=== PATIENT | male | born 1995 | race African-American/Black ===

== ENCOUNTER 2020-08-12 15:41 | Inpatient (IN) | payer SELFPAY ==
[~2020-08-12] VITALS: Ht 180.3 cm; Wt 62.1 kg
[2020-08-12 18:50] LABS: BASOPHILS % 0.7 % (0.0-2.0); EOSINOPHILS % 2.7 % (0.0-5.0); HEMATOCRIT. 37.1 % (42.0-52.0); HEMOGLOBIN. 12.7 g/dL (14.0-18.0); LYMPHOCYTES % 12.7 % (20.0-50.0); MEAN CORPUSCULAR HEMOGLOBIN 30.5 pg (28.0-32.0); MEAN CORPUSCULAR VOLUME 89.2 fL (80.0-94.0); MEAN PLATELET VOLUME 7.1 fl (7.4-10.4); MONOCYTES % 7.3 % (2.0-8.0); NEUTROPHILS % 76.6 % (40.0-76.0); PLATELET 431 x1000/uL (130-400); RED BLOOD CELL COUNT 4.16 mill/uL (4.7-6.1); RED CELL DISTRIBUTION WIDTH 15.1 % (11.6-14.6)
[2020-08-12 18:56] LABS: CHLORIDE 102 mEq/L (98-107)
[2020-08-13 00:03] LABS: CLARITY URINE TURBID (CLEAR); COLOR URINE ORANGE (YELLOW); KETONES URINE NEGATIVE (NEGATIVE); LEUKOCYTE ESTERASE URINE 3+ (NEGATIVE); NITRITE URINE POSITIVE (NEGATIVE); OCCULT BLOOD URINE 3+ (NEGATIVE); PH URINE 6.5 (4.5-8.0); PROTEIN URINE 2+ (NEGATIVE); SPECIFIC GRAVITY URINE 1.012 (1.005-1.030); UROBILINOGEN URINE 0.2 E.U./dL (0.2-1.0)
[2020-08-13 00:14] LABS: *AMPHETAMINES SCREEN URINE NEGATIVE (NEGATIVE); *BARBITURATES SCREEN URINE NEGATIVE (NEGATIVE); *BENZODIAZEPINES SCREEN URINE NEGATIVE (NEGATIVE); *COCAINE SCREEN URINE NEGATIVE (NEGATIVE); METHADONE URINE SCREEN NEGATIVE (NEGATIVE); OPIATES URINE SCREEN PRESUMTIVE POSITIVE (NEGATIVE)
[2020-08-13 00:15] LABS: CANNABINOID URINE SCREEN PRESUMTIVE POSITIVE (NEGATIVE); PHENCYCLIDINE URINE SCREEN NEGATIVE (NEGATIVE)
[2020-08-13] MEDS ORDERED: CEFTRIAXONE 1 G PREMIX 50 ML IV ONE (00:30)
[2020-08-13] MEDS ORDERED: HYDROCODONE/ACETAMINOPHEN 5/325MG TABLET PO PRN (05:45)
[2020-08-13] MEDS ORDERED: DOCUSATE SODIUM 100MG CAPSULE PO PRN (05:45)
[2020-08-13] MEDS ORDERED: ONDANSETRON HCL 4MG/2ML INJ IV PRN (05:45)
[2020-08-13] MEDS ORDERED: MAGNESIUM/ALUMINUM HYDROXIDE/SIMETHICONE 30ML UDC PO PRN (05:45)
[2020-08-13] MEDS ORDERED: ACETAMINOPHEN 325MG TABLET PO PRN (05:45)
[2020-08-13] MEDS ORDERED: SODIUM CHLORIDE 0.45% 1,000 ML IV SCH (05:45)
[2020-08-13] MEDS ORDERED: CLONIDINE 0.1MG TABLET PO PRN (05:45)
[2020-08-13] MEDS ORDERED: LEVOFLOXACIN 500MG PREMIX 100 ML IV SCH (06:00)
[2020-08-13] MEDS ORDERED: ENOXAPARIN 40MG/0.4ML SYR SUBCUT SCH (09:00)
[2020-08-13 10:00] VITALS: BP 146/89
[2020-08-13 10:26] VITALS: BP 146/89
[2020-08-13 12:00] VITALS: BP 130/97
[2020-08-13 12:01] VITALS: BP 130/97
[2020-08-13 12:53] VITALS: BP 130/97
== END 2020-08-13 14:51 | disposition home or self-care (01) | DRG 463 ==
LOC: ER 15:41 → 8WST 08-13 00:34 → ENRESERV 08-13 07:37
PROVIDERS: ADMIT Hospitalist; ATTEND Hospitalist
DX: N39.0 Urinary tract infection, site not specified (principal); G82.20 Paraplegia, unspecified; F17.210 Nicotine dependence, cigarettes, uncomplicated; R55 Syncope and collapse; G40.909 Epilepsy, unspecified, not intractable, without status epilepticus; Z99.3 Dependence on wheelchair
CPT/HCPCS: 36415; 71045; 80053; 80305; 81003; 83880; 84484; 85025; 87077; 87186; 93005; 93306; 93970; 99285; J0696; A4315

== ENCOUNTER 2020-08-20 08:08 | Emergency (ER) | payer SELFPAY ==
[~2020-08-20] VITALS: Ht 175.3 cm; Wt 64.0 kg
[2020-08-20] MEDS ORDERED: DIAZEPAM 5 MG/ML 2ML CPJ IM ONE (09:15)
[2020-08-20] MEDS ORDERED: KETOROLAC 60MG/2ML VIAL IM ONE (09:15)
[2020-08-20] MEDS ORDERED: FENTANYL CITRATE/PF 50MCG/ML 2ML VIAL IV ONE (10:45)
[2020-08-20] MEDS ORDERED: PROPOFOL 200MG/20ML VIAL IV ONE (14:00)
[2020-08-20] MEDS ORDERED: ONDANSETRON HCL 4MG/2ML INJ IV ONE (14:00)
[2020-08-20 16:11] VITALS: BP 150/100
== END 2020-08-20 17:22 | disposition home or self-care (01) ==
LOC: ER 08:08
DX: S03.03XA Dislocation of jaw, bilateral, initial encounter (principal); F17.210 Nicotine dependence, cigarettes, uncomplicated; X58.XXXA Exposure to other specified factors, initial encounter; Y93.9 Activity, unspecified; Y92.9 Unspecified place or not applicable; Z71.6 Tobacco abuse counseling; Z93.0 Tracheostomy status; Z99.3 Dependence on wheelchair; Z74.01 Bed confinement status
CPT/HCPCS: 21480; 70100; 70486; 93005; 96372; 96374; 99152; 99285; J1885; J2405; J2704; J3010; J3360

== ENCOUNTER 2020-08-21 19:17 | Emergency (ER) | payer SELFPAY ==
[~2020-08-21] VITALS: Ht 172.7 cm; Wt 60.0 kg
[2020-08-21] MEDS ORDERED: ONDANSETRON HCL 4MG/2ML INJ IV ONE ×2 (19:45→21:45)
[2020-08-21] MEDS ORDERED: PROPOFOL 200MG/20ML VIAL IV ONE ×2 (19:45→21:45)
[2020-08-21 22:41] VITALS: BP 138/93
== END 2020-08-21 23:31 | disposition home or self-care (01) ==
LOC: ER 19:17
DX: S03.03XA Dislocation of jaw, bilateral, initial encounter (principal); X58.XXXA Exposure to other specified factors, initial encounter; Y93.9 Activity, unspecified; Y92.9 Unspecified place or not applicable; Z93.0 Tracheostomy status
CPT/HCPCS: 21480; 93005; 96374; 99152; 99285; J2405; J2704